=== PATIENT | female | born 1995 | race Caucasian/White ===

== ENCOUNTER 2017-03-26 20:22 | Inpatient (IN) | payer OTHER ==
[2017-03-26 20:57] LABS: BILIRUBIN NEGATIVE (NEGATIVE); BLOOD NEGATIVE Ery/uL (NEGATIVE); CLARITY CLEAR (CLEAR); COLOR YELLOW (YELLOW); GLUCOSE (U) NORMAL (NORMAL); KETONE (U) NEGATIVE (NEGATIVE); LEUKOCYTES 2+ Leu/uL (NEGATIVE); NITRITE NEGATIVE (NEGATIVE); PROTEIN NEGATIVE (NEGATIVE); UROBILINOGEN 0.2 mg/dL (0.2-1.0); pH 6.5 (5.0-9.0)
[2017-03-26 21:12] LABS: BACTERIA 1+
[2017-03-26 22:49] LABS: HCT 34.8 % (37.0-47.0); HGB 11.2 g/dl (12.5-16.0); MCH 24.5 pg (25.0-31.0); MCHC 32.2 g/dL (32.0-36.0); RBC 4.58 M/uL (4.20-5.40); RDW 13.7 % (11.5-14.0); WBC 11.4 K/uL (4.0-10.5)
[2017-03-28 05:38] LABS: HCT 30.5 % (37.0-47.0); HGB 9.7 g/dl (12.5-16.0); MCH 24.3 pg (25.0-31.0); MCHC 31.8 g/dL (32.0-36.0); MCV 76.3 fL (78.0-100.0); MPV 10.9 fL (6.0-9.5); RDW 13.7 % (11.5-14.0); WBC 16.1 K/uL (4.0-10.5)
== END 2017-03-29 16:10 | disposition home or self-care (01) | DRG 775 ==
LOC: FOD 20:22 → FOB 20:23 → FOD 22:07 → FOB 22:08
PROVIDERS: ADMIT Obstetrics & Gynecology
PROC: 10907ZC Drainage of Amniotic Fluid, Therapeutic from Products of Conception, Via Natural or Artificial Opening (ICD-10-PCS; principal; 2017-03-27)
PROC: 10E0XZZ Delivery of Products of Conception, External Approach (ICD-10-PCS; 2017-03-27)
PROC: 0KQM0ZZ Repair Perineum Muscle, Open Approach (ICD-10-PCS; 2017-03-27)
PROC: 4A1HX4Z Monitoring of Products of Conception, Cardiac Electrical Activity, External Approach (ICD-10-PCS; 2017-03-27)
DX: O32.1XX0 Maternal care for breech presentation, not applicable or unspecified (principal); O69.81X0 Labor and delivery complicated by cord around neck, without compression, not applicable or unspecified; O70.1 Second degree perineal laceration during delivery; Z3A.39 39 weeks gestation of pregnancy; Z37.0 Single live birth; O09.893 Supervision of other high risk pregnancies, third trimester; Z28.3 Underimmunization status
CPT/HCPCS: 36415; 81001; J2795

== ENCOUNTER 2022-04-03 05:56 | Emergency (ER) | payer OTHER ==
[~2022-04-03 05:56] MED LIST: BENTYL10 MG PO; LAMICTAL100 MG PO; PROZAC20 MG PO; ZOFRAN4 MG PO
[2022-04-03 07:04] LABS: INFLUENZA A NAA NEGATIVE (NEGATIVE)
[2022-04-03 07:10] LABS: CORONAVIRUS 2019 SARS-COV-2 POSITIVE (NEGATIVE)
== END 2022-04-03 07:18 | disposition home or self-care (01) ==
LOC: FER 05:56
PROVIDERS: Internal Medicine
DX: U07.1 COVID-19 (principal)
CPT/HCPCS: 71045; J1100; U0002